=== PATIENT | female | born 1965 | race Caucasian/White ===

== ENCOUNTER 2023-04-20 15:25 | Emergency (ER) | payer BC ==
[~2023-04-20] VITALS: Ht 170.2 cm; Wt 127.0 kg
[2023-04-20 15:50] LABS: Calcium, Ionized (POC) 1.05 mmol/L (1.10-1.46); Chloride (POC) 101 mmol/L (98-108); Creatinine (POC) 0.9 mg/dL (0.6-1.0); Glucose (ISTAT POC) 176 mg/dL (70-99); Hemoglobin (POC) 9.5 g/dL (12.0-16.0); Potassium (POC) 3.5 mmol/L (3.5-5.5); Sodium (POC) 134 mmol/L (135-148); Total CO2 (POC) 20 mmol/L (21-32)
[2023-04-20 15:54] LABS: Hematocrit 29.4 % (33.0-51.0); Hemoglobin 9.9 g/dL (11.5-16.0); Mean Corpuscular HGB 30.3 pg (26.0-34.0); Mean Corpuscular HGB Conc 33.7 g/dL (31.5-36.5); Mean Corpuscular Volume 90 fL (80-100); Mean Platelet Volume 10.7 fL (9.1-12.4); Platelet Count 427 K/mm3 (150-400); RDW Standard Deviation 42.5 fL (35.1-46.3); Red Blood Cell Count 3.27 M/mm3 (3.80-5.20); White Blood Cell Count 29.45 K/mm3 (4.00-11.30)
[2023-04-20 15:57] LABS: Base Excess Venous -4.1 mmol/L; Bicarbonate Venous 21.7 mmol/L (24.0-30.0); pH Blood Venous 7.45 (7.34-7.37)
[2023-04-20 16:25] LABS: Albumin, Blood 3.1 g/dL (3.4-5.0); Albumin/Globulin Ratio 0.8 (0.8-1.8); Bilirubin, Total 0.9 mg/dL (0.1-1.0); Bun/Creatinine Ratio 11.8 (12.0-20.0); Calcium, Blood 8.6 mg/dL (8.5-10.1); Creatinine, Blood 0.94 mg/dL (0.40-1.00); Globulin, Blood 3.8 g/dL (2.2-4.0); Potassium, Blood 3.6 mmol/L (3.5-5.5); Total Protein, Blood 6.9 g/dL (6.4-8.2)
[2023-04-20 16:51] LABS: BAND PERCENT MAN 27 % (0-8); BASOPHILS PERCENT MAN 0 % (0-2); EOSINOPHILS PERCENT MAN 0 % (0-6); LYMPHOCYTES ABSOLUTE MAN 3.82 K/mm3 (0.84-5.20); LYMPHOCYTES PERCENT MAN 13 % (21-46); MONOCYTES ABSOLUTE MAN 0.29 K/mm3 (0.16-1.47); MONOCYTES PERCENT MAN 1 % (4-13); NEUTROPHILS ABSOLUTE MAN 25.32 K/mm3 (1.96-9.15); SEG NEUTROPHILS PERCENT MAN 59 % (41-73); TOTAL CELLS COUNTED 100
[2023-04-20] MEDS ORDERED: OXYC5 (17:37)
[2023-04-20] MEDS ORDERED: REGLAN1013 (17:37)
[2023-04-20] MEDS ORDERED: Ventolin/Prove6.7 GM (17:37)
[2023-04-20] MEDS ORDERED: FAMOTIDINE 20 MG TAB (17:37)
[2023-04-20] MEDS ORDERED: NEURONTIN300 MG (17:37)
[2023-04-20] MEDS ORDERED: CELEBREX200 MG (17:37)
[2023-04-20 18:22] VITALS: BP 111/88
== END 2023-04-20 18:30 | disposition short-term general hospital (02) ==
LOC: ER 15:25
PROVIDERS: Emergency Medicine
DX: K95.89 Other complications of other bariatric procedure (principal); K65.9 Peritonitis, unspecified; Z88.5 Allergy status to narcotic agent; Z91.040 Latex allergy status
CPT/HCPCS: 36415; 71045; 74177; 80047; 80053; 82803; 83605; 83690; 85014; 85025; 86850; 86900; 86901; 93005; 93010; 94640; 94664; 96361; 96365; 96375; 96376; 99285-25; J2405; J2543; J3010; J7030; J7120; Q9967

== ENCOUNTER 2023-05-30 09:17 | Emergency (ER) | payer BC ==
[~2023-05-30] VITALS: Ht 170.2 cm; Wt 113.4 kg
[~2023-05-30 09:17] MED LIST: CELEBREX200 MG; FAMOTIDINE 20 MG TAB; NEURONTIN300 MG; OXYC5; REGLAN1013; Ventolin/Prove6.7 GM
[2023-05-30 10:57] LABS: BASOPHILS ABSOLUTE AUTO 0.02 K/mm3 (0.00-0.23); BASOPHILS PERCENT AUTO 0 % (0-2); EOSINOPHILS ABSOLUTE AUTO 0.01 K/mm3 (0.00-0.68); EOSINOPHILS PERCENT AUTO 0 % (0-6); Hematocrit 33.1 % (33.0-51.0); Hemoglobin 10.5 g/dL (11.5-16.0); IMMATURE GRAN ABSOLUTE AUTO 0.05 K/mm3 (0.00-0.10); IMMATURE GRAN PERCENT AUTO 0 % (0-1); LYMPHOCYTES PERCENT AUTO 20 % (21-46); MONOCYTES PERCENT AUTO 8 % (4-13); Mean Corpuscular HGB 27.8 pg (26.0-34.0); Mean Corpuscular HGB Conc 31.7 g/dL (31.5-36.5); Mean Corpuscular Volume 88 fL (80-100); Mean Platelet Volume 10.4 fL (9.1-12.4); NEUTROPHILS ABSOLUTE AUTO 8.09 K/mm3 (1.96-9.15); NEUTROPHILS PERCENT AUTO 72 % (41-73); Platelet Count 428 K/mm3 (150-400); RDW Coefficient Variation 14.6 % (11.7-14.2); RDW Standard Deviation 46.7 fL (35.1-46.3); Red Blood Cell Count 3.78 M/mm3 (3.80-5.20); White Blood Cell Count 11.27 K/mm3 (4.00-11.30)
[2023-05-30 11:12] LABS: Albumin, Blood 2.5 g/dL (3.4-5.0); Albumin/Globulin Ratio 0.5 (0.8-1.8); Bilirubin, Total 0.6 mg/dL (0.1-1.0); Bun/Creatinine Ratio 9.9 (12.0-20.0); Calcium, Blood 8.4 mg/dL (8.5-10.1); Creatinine, Blood 0.5 mg/dL (0.40-1.00); Globulin, Blood 5.2 g/dL (2.2-4.0); Magnesium, Blood 2.1 mg/dL (1.6-2.4); Potassium, Blood 3.5 mmol/L (3.5-5.5); Total Protein, Blood 7.7 g/dL (6.4-8.2)
[2023-05-30 12:30] VITALS: BP 147/97
== END 2023-05-30 15:18 ==
LOC: ER 09:17
PROVIDERS: Physician Assistant
DX: K95.81 Infection due to other bariatric procedure (principal); K65.1 Peritoneal abscess; Z88.5 Allergy status to narcotic agent; Z91.040 Latex allergy status; Z79.899 Other long term (current) drug therapy
CPT/HCPCS: 74177; 76705; 80053; 83735; 85025; 86140; 96361; 96374; 96375; 96376; 99285-25; J1170; J1450; J2405; J2543; J3010; J7030; Q9967

== ENCOUNTER 2023-06-09 12:02 | Emergency (ER) | payer BC ==
[~2023-06-09] VITALS: Ht 170.2 cm; Wt 112.0 kg
[2023-06-09 12:16] VITALS: BP 129/103
== END 2023-06-09 13:46 | disposition left against medical advice (07) ==
LOC: ER 12:02
DX: Z53.21 Procedure and treatment not carried out due to patient leaving prior to being seen by health care provider (principal)
CPT/HCPCS: 99281

== ENCOUNTER → 2023-07-04 | Outpatient (CLI) | payer BC ==
[2023-07-04 16:29] LABS: BASOPHILS ABSOLUTE AUTO 0.05 K/mm3 (0.00-0.23); BASOPHILS PERCENT AUTO 1 % (0-2); EOSINOPHILS ABSOLUTE AUTO 0.12 K/mm3 (0.00-0.68); EOSINOPHILS PERCENT AUTO 1 % (0-6); Hematocrit 38.1 % (33.0-51.0); Hemoglobin 12.4 g/dL (11.5-16.0); IMMATURE GRAN ABSOLUTE AUTO 0.02 K/mm3 (0.00-0.10); IMMATURE GRAN PERCENT AUTO 0 % (0-1); LYMPHOCYTES ABSOLUTE AUTO 2.35 K/mm3 (0.84-5.20); LYMPHOCYTES PERCENT AUTO 26 % (21-46); MONOCYTES ABSOLUTE AUTO 0.51 K/mm3 (0.16-1.47); MONOCYTES PERCENT AUTO 6 % (4-13); Mean Corpuscular HGB 27.8 pg (26.0-34.0); Mean Corpuscular HGB Conc 32.5 g/dL (31.5-36.5); Mean Corpuscular Volume 85 fL (80-100); Mean Platelet Volume 11.8 fL (9.1-12.4); NEUTROPHILS ABSOLUTE AUTO 5.98 K/mm3 (1.96-9.15); NEUTROPHILS PERCENT AUTO 66 % (41-73); Platelet Count 365 K/mm3 (150-400); RDW Coefficient Variation 16.2 % (11.7-14.2); RDW Standard Deviation 50.7 fL (35.1-46.3); Red Blood Cell Count 4.46 M/mm3 (3.80-5.20); White Blood Cell Count 9.03 K/mm3 (4.00-11.30)
[2023-07-04 18:41] LABS: Albumin, Blood 3.3 g/dL (3.4-5.0); Albumin/Globulin Ratio 0.8 (0.8-1.8); Bilirubin, Total 0.3 mg/dL (0.1-1.0); Bun/Creatinine Ratio 20.5 (12.0-20.0); Calcium, Blood 9.1 mg/dL (8.5-10.1); Creatinine, Blood 0.63 mg/dL (0.40-1.00); Potassium, Blood 3.9 mmol/L (3.5-5.5); Total Protein, Blood 7.3 g/dL (6.4-8.2)
== END | disposition home or self-care (01) ==
LOC: LAB 14:35 → LAB SHORT 14:35
PROVIDERS: Family Medicine
DX: R10.9 Unspecified abdominal pain (principal)
CPT/HCPCS: 80053; 83690; 85025

== ENCOUNTER → 2024-09-05 | Outpatient (CLI) | payer SELFPAY ==
[~2024-09-05] MED LIST changes: +CEPH500 PO; +Hydroxyzine HCl25 MG PO; +NEURONTIN300 MG PO; +OXYACE7.5T PO; +PANT20 PO; +PANTOPRAZOLE SO40 M2 PO; +ROPINIROLE HC0.2510 PO; +TAMS.4ER PO
[2024-09-05 16:13] LABS: C-REACTIVE PROTEIN, EXT RANGE <0.290 mg/dL (0.000-0.300)
[2024-09-07 22:35] LABS: ANTI-NUCLEAR AB ANA,IGG ELISA Detected (None Detected)
[2024-09-09 04:23] LABS: ANTINUCLEAR AB (ANA),HEP-2,IGG <1:80 (<1:80)
== END | disposition home or self-care (01) ==
LOC: LAB SHORT 13:10 → LAB 13:10
PROVIDERS: Physician Assistant
DX: M25.50 Pain in unspecified joint (principal)
CPT/HCPCS: 82607; 82746; 85651; 86038; 86039; 86140; 86430

== ENCOUNTER 2025-03-17 09:08 | Day surgery (SDC) | payer BC ==
[~2025-03-17] VITALS: Ht 170.2 cm; Wt 82.2 kg
[~2025-03-17 09:08] MED LIST changes: +NS 0 ML IV ONE
[2025-03-17] MEDS ORDERED: CeFAZolin Sodium 2,000 MG VIAL ONE (09:32)
[2025-03-17] MEDS ORDERED: FAMO40 PO (09:56)
[2025-03-17] MEDS ORDERED: PREG150 (09:57)
--- NOTE | 2025-03-17 10:05 | NUR ---
03/17/25 Erinn Cifuentes CALL LIGHT WITHIN REACH.
[2025-03-17] MEDS ORDERED: Midazolam HCl 1MG / ML 2ML Vial ONE (10:14)
[2025-03-17] MEDS ORDERED: Lidocaine HCl 2% 10 ML SDA ONE (10:22)
[2025-03-17] MEDS ORDERED: Labetalol HCL 5 MG/ML 4ML Injection (Single Dose) ONE (10:54)
[2025-03-17] MEDS ORDERED: FentaNYL Citrate 50 MCG/ML 2 ML Injection ONE ×2 (10:55→11:28)
[2025-03-17] MEDS ORDERED: Sugammadex Sodium 200 MG/2ML SDV (100 MG/ML) ONE (10:57)
--- NOTE | 2025-03-17 11:14 | NUR ---
03/17/25 1114 Idania Rosado REPORT RECEIVED FROM MARLENA AND RN. MARLENA AWARE OF BP. NO NEW ORDERS AT THIS TIME
--- NOTE | 2025-03-17 11:22 | NUR ---
03/17/25 1122 Idania Rosado PT REPORTS NUMBNESS IN 2ND, 3RD, AND 4TH FINGER. REPORTS FEELING DISCOMFORT IN HAND BUT STATES IT'S TOLERABLE AT THIS TIME. PT SITTING UP USING PHONE.
[2025-03-17 12:24] VITALS: BP 118/98
[2025-03-17] MEDS ORDERED: Metoclopramide HCl 5MG / ML 2ML Vial IV ONE (17:36)
[2025-03-17] MEDS ORDERED: Rocuronium Bromide 10 MG/ML 5ML Injection IV ONE (17:36)
[2025-03-17] MEDS ORDERED: Ondansetron HCl 2 MG / ML 2ML Vial IV ONE (17:36)
== END 2025-03-17 12:31 | disposition home or self-care (01) ==
LOC: ORSCSDS 09:08
PROVIDERS: Orthopaedic Surgery
PROC: 01N54ZZ Release Median Nerve, Percutaneous Endoscopic Approach (ICD-10-PCS; principal; 2025-03-17 10:45)
PROC: 01N40ZZ Release Ulnar Nerve, Open Approach (ICD-10-PCS; principal; 2025-03-17 10:45)
DX: G56.22 Lesion of ulnar nerve, left upper limb (principal); G56.02 Carpal tunnel syndrome, left upper limb; J44.9 Chronic obstructive pulmonary disease, unspecified; L93.0 Discoid lupus erythematosus; K21.9 Gastro-esophageal reflux disease without esophagitis; Z79.899 Other long term (current) drug therapy; F17.210 Nicotine dependence, cigarettes, uncomplicated
CPT/HCPCS: A9270; J0461; J0690; J2003; J2250; J2405; J2704; J2765; J3010; J7040; J7120

== ENCOUNTER 2025-05-18 09:42 | Day surgery (SDC) | payer BC ==
[~2025-05-18] VITALS: Ht 170.2 cm; Wt 85.3 kg
[~2025-05-18 09:42] MED LIST changes: +CeFAZolin Sodium 2,000 MG VIAL ONE; +FAMO40 PO; +Lidocaine HCl 2% 10 ML SDA ONE; -NS 0 ML IV ONE; +PREG150
[2025-05-18] MEDS ORDERED: Midazolam HCl 1MG / ML 2ML Vial ONE ×2 (10:13→10:38)
[2025-05-18] MEDS ORDERED: FentaNYL Citrate 50 MCG/ML 2 ML Injection ONE ×2 (10:38→11:48)
[2025-05-18] MEDS ORDERED: Rocuronium Bromide 10 MG/ML 5ML Injection IV ONE (10:55)
[2025-05-18] MEDS ORDERED: Sugammadex Sodium 200 MG/2ML SDV (100 MG/ML) ONE (11:16)
[2025-05-18] MEDS ORDERED: Dexamethasone Sod Phos 10 MG/ML 1ML VIAL ONE (11:16)
[2025-05-18] MEDS ORDERED: Ondansetron HCl 2 MG / ML 2ML Vial ONE (11:16)
[2025-05-18] MEDS ORDERED: HydrALAZINE HCl 20 MG / ML 1ML Vial ONE (12:34)
[2025-05-18 13:40] VITALS: BP 163/98
[2025-05-18] MEDS ORDERED: Morphine Sulfate 4 MG/1 ML Injection ONE (13:44)
--- NOTE | 2025-05-18 14:46 | NUR ---
05/18/25 1446 Mikey Sanders PT INITIALLY REPORTING 6-9/10 PAIN IN SDU (FLACC 0-3/10). PT REPORTED TOLERABLE, 4/10 PAIN AFTER BEING MEDICATED WITH FENTANYL (SEE EMAR AND VSS). PT VOIDED. SHE ALTERNATELY APPEARED CALM AND TENSE/AGITATED THROUGHOUT SDU STAY. DR. DURAN CONSULTED REGARDING B/P AND ORDERED HYDRALAZINE (SEE ANESTHESIA ORDERS AND EMAR). AFTER SECOND DOSE OF HYDRALAZINE PT BEGAN REPORTING INCREASING PAIN. SHE REFUSED FURTHER FENTANYL AND HYDRALAZINE ADMINISTRATION AND BEGAN STATING, "I JUST WANT TO GO HOME." PT MEDICATED WITH MORPHINE AND REPORTED 0/[address] DURAN CONSULTED AGAIN REGARDING B/P AND APPROVED D/C. PT APPEARED ALERT AND RELAXED UPON D/C. SHE DESCRIBED PAIN TOLERABLE AND EXPRESSED GRATITUDE FOR HER CARE. PT DENIED CP, ROBISON, SOB, WEAKNESS, DIZZINESS, NAUSEA, VISUAL DISTURBANCE, AND OTHER SYMPTOMS THROUGHOUT STAY IN SDU. SHE WAS INSTRUCTED TO FOLLOW UP WITH HER PCP IMMEDIATELY REGARDING B/P AND SEEK IMMEDIATE EMERGENCY MEDICAL CARE FOR ANY OF THE AFOREMENTIONED SYMPTOMS.
[2025-05-18] MEDS ORDERED: Glycopyrrolate 0.2 MG/ML 5ML VIAL IV ONE (19:24)
[2025-05-18] MEDS ORDERED: Ketorolac Tromethamine 30mg Vial IV ONE (19:24)
== END 2025-05-18 14:05 | disposition home or self-care (01) ==
LOC: ORSCSDS 09:42
PROVIDERS: Orthopaedic Surgery
PROC: 01N54ZZ Release Median Nerve, Percutaneous Endoscopic Approach (ICD-10-PCS; principal; 2025-05-18 11:30)
PROC: 01N40ZZ Release Ulnar Nerve, Open Approach (ICD-10-PCS; principal; 2025-05-18 11:30)
DX: G56.21 Lesion of ulnar nerve, right upper limb (principal); G56.01 Carpal tunnel syndrome, right upper limb; K21.9 Gastro-esophageal reflux disease without esophagitis; J44.9 Chronic obstructive pulmonary disease, unspecified; F17.210 Nicotine dependence, cigarettes, uncomplicated; Z79.899 Other long term (current) drug therapy; Z98.84 Bariatric surgery status
CPT/HCPCS: J0360; J0690; J1100; J1885; J2003; J2250; J2270; J2405; J2704; J3010; J7120